=== PATIENT | male | born 2000 | race Two or more races ===

== ENCOUNTER 2020-05-31 21:03 | Emergency (ER) | payer SELFPAY ==
[~2020-05-31] VITALS: Ht 172.7 cm; Wt 81.6 kg
--- NOTE | 2020-05-31 21:15 | NUR ---
ED Nurse Note: Pt from home with c/o sob with asthma x 2 days, no fevers or other s/s, pt has been out with friends last night. out of home asthma meds. changed into gown; attached to monitor. all safety measures met.
--- NOTE | 2020-05-31 21:28 | Emergency Room Report ---
History of Present Illness General Chief Complaint: Dyspnea/Respdistress Source: Patient Present Illness HPI Patient presents with exacerbation of asthma. This has been going on for several days. He ran out of his inhaler today. It is severe but not the worst attack he is ever had. He has had prednisone in the past. He was intubated when he was young. He denies chest pain. He denies fevers or chills. He denies productive phlegm of any color. There is no nausea, vomiting or diarrhea. He denies joint pain. He denies dizziness. The patient denies exposure to Covid positive contacts. No sore throat, chest pain, palpitations, dysuria, abdominal pain, joint pain, rashes, depression, anxiety, visual changes, dizziness, headache. Allergies: Coded Allergies: No Known Allergies (Unverified , 05/31/20) COVID-19 Screening Contact w/high risk pt: No Experienced COVID-19 symptoms?: Yes COVID-19 Testing performed ALLERGY NURSE: No Patient History Past Medical History: see triage record Social History: Denies: smoking Social History Narrative From home Reviewed Nursing Documentation: PMH: Agreed; PSxH: Agreed Nursing Documentation-PMH Hx Asthma: Yes Review of Systems All Other Systems: negative except mentioned in HPI Physical Exam Vital Signs Date Time Temp Pulse Resp B/P (MAP) Pulse Ox O2 Delivery O2 Flow Rate FiO2 05/31/20 21:11 98.1 113 20 130/78 (95) 90 Room Air Sp02 EP Interpretation: reviewed, abnormal - Interpreted as low by me General Appearance: well appearing, alert, GCS 15, non-toxic, mild distress Head: normocephalic Eyes: bilateral eye normal inspection, bilateral eye PERRL, bilateral eye EOMI ENT: normal pharynx, moist mucus membranes Neck: supple Respiratory: respiratory distress - Mild, wheezing, expiration, inspiration Cardiovascular #1: regular rate, rhythm, no edema Cardiovascular #2: 2+ radial (R) Gastrointestinal: normal inspection, normal bowel sounds, non tender, no mass, non-distended Musculoskeletal: back normal, normal range of motion, gait/station normal Neurologic: alert, oriented x3, grossly normal Psychiatric: mood/affect normal Skin: no rash, warm/dry Medical Decision Making Diagnostic Impression: Primary Impression: Asthma exacerbation Qualified Codes: J45.41 - Moderate persistent asthma with (acute) exacerbat ion Additional Impressions: Renal insufficiency Eosinophilia Qualified Codes: D72.19 - Other eosinophilia ER Course Patient presents with several days of worsening wheezing. Differential includes exacerbation of asthma, pneumonia, COVID-19, bronchitis amongst others. Patient evaluated with chest x-ray and labs. COVID-19 needs to be tested as breathing treatments are indicated. As breathing treatments are not available IM epinephrine is administered. In addition IV Solu-Medrol will be administered. The patient has had severe asthma in the past but this is not his worst attack. Patient is placed on a conveyor monitor. Chest x-ray no infiltrates. Labs with normal white count. Eosinophilia. CMP remarkable for elevated creatinine. Improved after IM epinephrine. Covid negative and breathing treatments institu mohan. After 2 treatments the patient requests no more hand-held nebulizer treatments as he feels fine at this time. Kimberly 2330 Discussed findings with patient and treatment plan. Patient improved with treatment at this time and stable for outpatient observation and treatment. Laboratory Tests Test 05/31/20 21:30 White Blood Count 8.9 K/UL (4.8-10.8) Red Blood Count 5.16 M/UL (4.70-6.10) Hemoglobin 16.2 G/DL (14.2-18.0) Hematocrit 47.7 % (42.0-52.0) Mean Corpuscular Volume 92 FL (80-99) Mean Corpuscular Hemoglobin 31.3 PG (27.0-31.0) H Mean Corpuscular Hemoglobin Concent 33.9 G/DL (32.0-36.0) Red Cell Distribution Width 12.5 % (11.6-14.8) Platelet Count 245 K/UL (150-450) Mean Platelet Volume 8.3 FL (6.5-10.1) Neutrophils (%) (Auto) 52.5 % (45.0-75.0) Lymphocytes (%) (Auto) 32.3 % (20.0-45.0) Monocytes (%) (Auto) 5.8 % (1.0-10.0) Eosinophils (%) (Auto) 7.5 % (0.0-3.0) H Basophils (%) (Auto) 1.9 % (0.0-2.0) Sodium Level 138 MMOL/L (136-145) Potassium Level 3.8 MMOL/L (3.5-5.1) Chloride Level 104 MMOL/L (98-107) Carbon Dioxide Level 29 MMOL/L (21-32) Anion Gap 5 mmol/L (5-15) Blood Urea Nitrogen 16 mg/dL (7-18) Creatinine 1.6 MG/DL (0.55-1.30) H Estimated Glomerular Filtration Rate 56.0 mL/min (>60) Glucose Level 100 MG/DL (74-106) Calcium Level 8.9 MG/DL (8.5-10.1) Magnesium Level 2.1 MG/DL (1.8-2.4) Total Bilirubin 0.2 MG/DL (0.2-1.0) Aspartate Amino Transferase (AST) 15 U/L (15-37) Alanine Aminotransferase (ALT) 26 U/L (12-78) Alkaline Phosphatase 108 U/L (46-116) Total Protein 7.4 G/DL (6.4-8.2) Albumin 4.2 G/DL (3.4-5.0) Globulin 3.2 g/dL Albumin/Globulin Ratio 1.3 (1.0-2.7) Microbiology Date/Time Source Procedure Growth Status 05/31/20 21:30 Nasopharynx SARS-CoV-2 RdRp Gene Assay - Final Complete Rhythm Strip Diag. Results EP Interpretation: yes Rhythm: NSR, no PVC's, no ectopy Chest X-Ray Diagnostic Results Chest X-Ray Diagnostic Results : Chest X-Ray Ordered: Yes # of Views/Limited/Complete: 1 View Indication: Shortness of Breath EP Interpretation: Yes Interpretation: no consolidation, no effusion, no pneumothorax Impression: No acute disease Electronically Signed by: Electronically signed by Jesu Humphries MD Last Vital Signs Date Time Temp Pulse Resp B/P (MAP) Pulse Ox O2 Delivery O2 Flow Rate FiO2 05/31/20 23:45 98.1 99 20 116/63 99 Room Air 21 Status: improved Disposition: HOME, SELF-CARE Condition: Improved Scripts Prednisone* (PREDNISONE*) 20 Mg Tablet 40 MG ORAL DAILY, #10 TAB Prov: Jesu Humphries MD 05/31/20 Albuterol Sulfate* (Albuterol Sulfate Hfa*) 8.5 Gm Hfa.aer.ad 2 PUFF INH Q6H, #1 INH 1 Refill Prov: Jesu Humphries MD 05/31/20 Referrals: NOT CHOSEN IPA/,REFERRING (PCP) Jesu Humphries MD May 31, 2020 21:28
[2020-05-31 21:30] VITALS: BP 130/78
[2020-05-31] MEDS ORDERED: EPINEPHrine 1mg/1ml Amp IM ONE (21:30)
[2020-05-31] MEDS ORDERED: Solu-MEDROL 125mg Inj IVP ONE (21:30)
[2020-05-31] MEDS ORDERED: Ipratropium 0.02% Inh Soln 2.5ml UD HHN ONE (21:30)
--- NOTE | 2020-05-31 21:30 | NUR ---
ED Nurse Note: iv access established. blood, covid swab collected; sent down to lab.
--- NOTE | 2020-05-31 22:16 | Diagnostic Imaging Report ---
EXAM: XR Chest, 1 View CLINICAL HISTORY: DYSPNEA TECHNIQUE: Frontal view of the chest. COMPARISON: No relevant prior studies available. FINDINGS: Normal AP portable chest radiograph.
[2020-05-31 22:21] LABS: BASOPHILS % (AUTO) 1.9 % (0.0-2.0); EOSINOPHILS % (AUTO) 7.5 % (0.0-3.0); HEMATOCRIT 47.7 % (42.0-52.0); HEMOGLOBIN 16.2 G/DL (14.2-18.0); LYMPHOCYTES % (AUTO) 32.3 % (20.0-45.0); MEAN CORPUSCULAR VOLUME 92 FL (80-99); MONOCYTES % (AUTO) 5.8 % (1.0-10.0); NEUTROPHILS % (AUTO) 52.5 % (45.0-75.0); PLATELET COUNT 245 K/UL (150-450); RED BLOOD COUNT 5.16 M/UL (4.70-6.10); RED CELL DISTRIBUTION WIDTH 12.5 % (11.6-14.8); WHITE BLOOD COUNT 8.9 K/UL (4.8-10.8)
[2020-05-31 22:32] LABS: CALCIUM 8.9 MG/DL (8.5-10.1); CREATININE 1.6 MG/DL (0.55-1.30); POTASSIUM 3.8 MMOL/L (3.5-5.1)
[2020-05-31 22:40] LABS: ALBUMIN 4.2 G/DL (3.4-5.0); ALBUMIN/GLOBULIN RATIO 1.3 (1.0-2.7); BILIRUBIN,TOTAL 0.2 MG/DL (0.2-1.0)
--- NOTE | 2020-05-31 22:50 | NUR ---
ED Nurse Note: rt at bedside for breathing treatment
[2020-05-31] MEDS: Albuterol ud Inhalation HHN SCH ×2 (22:59→23:19)
[2020-05-31 23:18] VITALS: BP 116/63
[2020-05-31] MEDS ORDERED: ALBUTEROL SULF8.5 G1 INH (23:40)
[2020-05-31] MEDS ORDERED: PREDNISONE20 MG ORAL (23:40)
[2020-05-31 23:45] VITALS: BP 116/63
--- NOTE | 2020-05-31 23:45 | NUR ---
ER DISCHARGE NOTE: Patient is cleared to be discharged per ERMD, pt is aox4, on room air, with stable vital signs. pt was given dc and prescription instructions, pt was able to verbalize understanding, pt id band and iv site removed without complications. pt is able to ambulate with steady gait. pt took all belongings.
== END 2020-05-31 23:45 | disposition home or self-care (01) ==
LOC: EMR 21:25
DX: J45.41 Moderate persistent asthma with (acute) exacerbation (principal); D72.19 Other eosinophilia; N28.9 Disorder of kidney and ureter, unspecified
CPT/HCPCS: 36415; 71045; 80053; 83735; 85025; 94640; 96372; 96374; 99284; J0171; J2930; U0002

== ENCOUNTER 2020-08-05 11:55 | Emergency (ER) | payer MEDICAID ==
[~2020-08-05] VITALS: Ht 172.7 cm; Wt 90.7 kg
[~2020-08-05 11:55] MED LIST: ALBUTEROL SULF8.5 G1 INH; PREDNISONE20 MG ORAL
[2020-08-05] MEDS ORDERED: Albuterol 90mcg Inhaler 8gm INH ONE (12:04)
--- NOTE | 2020-08-05 12:07 | Emergency Room Report ---
History of Present Illness General Chief Complaint: Asthma Source: Patient Present Illness HPI Patient is a 20-year-old male presents for increased difficulty with breathing. Prior history of asthma. Had no recent fever. Reports having increased cough with increased phlegm production. Denies any vomiting or diarrhea. No recent fevers. No pain or swelling to his legs. Had run out of his inhaler. Had di fficulty breathing had onset last night. 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 COVID-19 Screening: Negative COVID-19 COVID-19 Testing Source: [facility] [place] Patient History Past Medical History: see triage record Reviewed Nursing Documentation: PMH: Agreed; PSxH: Agreed Nursing Documentation-PMH Past Medical History: No History, Except For Hx Asthma: Yes Review of Systems All Other Systems: negative except mentioned in HPI Physical Exam Vital Signs Date Time Temp Pulse Resp B/P (MAP) Pulse Ox O2 Delivery O2 Flow Rate FiO2 08/05/20 11:58 98.1 130 18 147/84 (105) 100 Room Air Sp02 EP Interpretation: reviewed, normal General Appearance: normal inspection, alert, GCS 15, mild distress Head: atraumatic ENT: normal ENT inspection, hearing grossly normal, normal voice Neck: normal inspection, full range of motion, supple, no bony tend Respiratory: normal inspection, no respiratory distress, no retraction, wheezing Cardiovascular #1: regular rate, rhythm, no edema Gastrointestinal: normal inspection, normal bowel sounds, non tender, soft, no guarding, no hernia Genitourinary: no CVA tenderness Musculoskeletal: normal inspection, back normal, normal range of motion Neurologic: alert, motor strength/tone normal, rubber down III-XII nml as tested, oriented x3, responsive, speech normal, normal inspection Psychiatric: normal inspection, judgement/insight normal, mood/affect normal Medical Decision Making Diagnostic Impression: Primary Impression: Asthma exacerbation ER Course Patient presented for shortness of breath. Differential diagnosis include was not limited to coronavirus infection, pneumonia, among others. Patient has a benign exam and does not appear to require any imaging or laboratory testing at this time.Patient was given oral steroids as well as breathing treatment. Coronavirus testing was ordered to patient's need for breathing treatment was negative. Patient was noted have improvement in air movement as well as respiratory difficulty after breathing treatment. He stated he felt better. Patient given prescription for albuterol as well as oral steroids. He was advised to return if any worsening condition or other concerns. He was advised to follow-up with his doctor for recheck in 1 to 2 days. This medical record is generated with [employer] stogy roller software. There may be some stogy roller discrepancies related to use of this software Last Vital Signs Date Time Temp Pulse Resp B/P (MAP) Pulse Ox O2 Delivery O2 Flow Rate FiO2 08/05/20 11:58 98.1 130 18 147/84 (105) 100 Room Air Status: improved Disposition: HOME, SELF-CARE Condition: Stable Scripts Prednisone* (PREDNISONE*) 20 Mg Tablet 40 MG ORAL DAILY, #10 TAB Prov: Roberto Catalan MD 08/05/20 Albuterol Sulfate* (Albuterol Sulfate Hfa*) 8.5 Gm Hfa.aer.ad 2 PUFF INH Q6H, #1 INH 1 Refill Prov: Roberto Catalan MD 08/05/20 Roberto Catalan MD Aug 05, 2020 12:07
[2020-08-05 12:08] VITALS: BP 138/86
--- NOTE | 2020-08-05 12:08 | NUR ---
ED Nurse Note: Patient from home and walked in due to SOB started last night and patient ran out of his inhaler. History of asthma. AAO x4, ambulatory with non labored breathing.
[2020-08-05] MEDS ORDERED: Albuterol/Ipratropium 3ml neb HHN ONE (12:15)
--- NOTE | 2020-08-05 12:20 | NUR ---
ED Nurse Note: Rapid covid19 swab sent.
[2020-08-05] MEDS ORDERED: ALBUTEROL SULF8.5 G1 INH (13:19)
[2020-08-05] MEDS ORDERED: PREDNISONE20 MG ORAL (13:19)
[2020-08-05 13:25] VITALS: BP 128/85
--- NOTE | 2020-08-05 13:25 | NUR ---
ER DISCHARGE NOTE: Patient is cleared to be discharged per ERMD, pt is aox4, on room air, with stable vital signs. pt was given dc and prescription instructions, pt was able to verbalize understanding, pt id band removed. pt is able to ambulate with steady gait. pt took all belongings.
--- NOTE | 2020-08-05 14:21 | Diagnostic Imaging Report ---
Indication: Shortness of breath Technique: One view of the chest Comparison: none Findings: Lungs and pleural spaces are clear. Heart size is normal. No significant change Impression: No acute process
== END 2020-08-05 13:25 | disposition home or self-care (01) ==
LOC: EMR 12:15
DX: J45.901 Unspecified asthma with (acute) exacerbation (principal); Z79.899 Other long term (current) drug therapy
CPT/HCPCS: 71045; 94640; J7512; U0002; Z7502; 99283; J7620